=== PATIENT | female | born 1960 | race Caucasian/White ===

== ENCOUNTER → 2017-04-17 | Outpatient (CLI) | payer OTHER | END | disposition home or self-care (01) | LOC: GMAJ 16:20 | PROVIDERS: ATTEND Family Medicine | DX: Z00.00 Encounter for general adult medical examination without abnormal findings (principal) ==

== ENCOUNTER → 2017-04-19 | Outpatient (CLI) | payer OTHER | END | disposition home or self-care (01) | LOC: RESP 14:28 | PROVIDERS: ATTEND Family Medicine | DX: R00.2 Palpitations (principal) ==

== ENCOUNTER → 2017-05-28 | Outpatient (CLI) | payer OTHER ==
--- NOTE | 2017-05-29 14:04 | MAM ---
EXAM DESCRIPTION: Screening Mammogram,Bilateral CLINICAL HISTORY: 56 yearsFemaleSCREENING. Postmenopausal. Stopped taking HRT more than five years ago.. COMPARISON: 04/01/2015 digital screening bilateral examination. No prior reports available. TECHNIQUE: Bilateral CC and MLO projection full-field images, digital screening mammographic technique. CAD was utilized. FINDINGS: The breast parenchymal density pattern is: Heterogeneously dense breast tissue, which may obscure small masses. No skin thickening or nipple retraction . Bilateral solitary parenchymal calcifications. Oval-shaped, well-circumscribed, fatty density mass inferior and medial to the nipple in the anterior third of the lower inner quadrant of the right breast. Dimensions 6.3 x 5.0 x 3.5 Cm. Slightly displaces the anterior skin surface. Minimal fibroglandular density, no calcifications. Most likely a lipoma. May be slightly enlarged since the prior study. Similar lesion in the lower inner quadrant of the anterior third of the left breast approximately minimal fibroglandular tissues, no calcifications; 3 cm in diameter. Skin moles bilaterally indicated by skin markers. No focal, stellate mass or density, focal asymmetry , and no suspicious microcalcifications bilaterally. Stable mammograms compared to the prior study 04/01/2015. IMPRESSION: BI-RADS CATEGORY: 2 - BENIGN FINDINGS. FOLLOW UP: Routine digital bilateral screening, one year interval from May 2017. Written communication explaining the findings and follow-up, will be mailed to the patient and referring health care provider. According to the [employer], yearly mammograms are recommended starting at age 40 and continuing as long as a woman is in good health. Any breast change noted on a breast self-exam should be reported promptly to the patient's healthcare provider. Breast MRI is recommended for women with an approximately 20-25% or greater lifetime risk of breast cancer, including women with a strong family history of breast or ovarian cancer and women who have been treated for Hodgkin's disease. A negative mammographic report should not delay tissue diagnosis in patients with significant clinical history or physical findings. Extremely dense breast tissue limits the sensitivity of digital mammography. Electronically signed by: Darrius Sotelo MD 05/29/2017 2:02 PM CDT Workstation: [id number]
== END | disposition home or self-care (01) ==
LOC: MAMMO 10:37
PROVIDERS: ATTEND Family Medicine
DX: Z12.31 Encounter for screening mammogram for malignant neoplasm of breast (principal)

== ENCOUNTER 2017-09-05 10:01 | Emergency (ER) | payer OTHER ==
[2017-09-05] MEDS ORDERED: CHLORHEXIDINE GLUCONATE 4 % 15 ML UD TOP ONE (10:16)
--- NOTE | 2017-09-05 10:20 | ED.PDOC ---
History of Present Illness - General Chief Complaint: Laceration Stated Complaint: R index finger laceration Time Seen by Provider: 09/05/17 10:10 Source: patient, RN notes reviewed, Vital Signs reviewed Exam Limitations: no limitations - History of Present Illness Initial Comments: Patient comes in with c/o laceration to right index finger. She had [place] gate [place] the dog [place] close on her finger. Denies jasmeet pain/injury. Timing/Duration: just prior to arrival Severity: mild Location: extremities - R index finger Improving Factors: other - pressure Worsening Factors: nothing Associated Symptoms: denies symptoms Home Medications: Ambulatory Orders Ibuprofen [Advil] 400 mg PO Q8HR 04/26/15 Misc Natural Products [Estroven Maximum Strength] 1 tab PO DAILY 04/26/15 Review of Systems - Review of Systems Constitutional: States: no symptoms reported Respiratory: States: no symptoms reported Cardiology: States: no symptoms reported Musculoskeletal: States: see HPI Skin: States: see HPI Neurological: States: no symptoms reported. Denies: numbness, paresthesia, tingling All other Systems: No Change from Baseline Past Medical History (General) - Patient Medical History Hx Stroke: No Hx Congestive Heart Failure: No Hx Diabetes: No Hx MRSA: No Surgical History: Hysterectomy - Vaccination History Hx Tetanus, Diphtheria Vaccination: - 2017 Hx Influenza Vaccination: Yes - 2016 Hx Pneumococcal Vaccination: No - Social History Hx Tobacco Use: Yes - Female History Patient is a Female of Child Bearing Age (10 -59 yrs old): No - hysterectomy Family Medical History - Family History Mother Family History: No Known Living Status: Physical Exam - Physical Exam General Appearance: Alert, Comfortable, No apparent distress, Well Developed, Well Groomed, Well Hydrated, Well Nourished Extremity: non-tender, normal inspection - except for skin injury. No jasmeet tenderness. FROM all finger joints. Neurologic: no motor/sensory deficits, alert, normal mood/affect, oriented x 3 Skin Exam: warm/dry, normal color Skin Problem Location: upper extremities Skin Character: other - R index finger: flap laceration over lateral aspect of middle phalynx. Normal distal sensation and capillary refill. Comments: Vital Signs 09/05/17 10:10 Temperature 97.9 F Pulse Rate [ 94 H Left Radial] Respiratory 20 Rate Blood Pressure 149/89 [Left Arm] O2 Sat by Pulse 97 Oximetry Procedures - Laceration/Wound Repair Right Lateral Finger Wound Length (cm): 2 Wound's Depth, Shape: superficial, flap Wound Explored: no foreign body removed Betadine Prep?: No - Soaked and cleaned with Hibiclens & Saline Wound Debrided: minimal Wound Repaired With: dermabond Layer Closure?: No Sterile Dressing Applied?: No Departure - Departure Clinical Impression: Laceration of index finger of right hand without complication Time of Disposition: 10:37 Disposition: Discharge to Home or Self Care Condition: Good Departure Forms: ED Discharge - Pt. Copy, Patient Portal Self Enrollment Instructions: DI for Laceration Repair With Dermabond Diet: resume usual diet Activity: increase activity as tolerated Referrals: Jaspreet Smith MD [Primary Care Provider] - 1-2 Weeks Home Medications: Ambulatory Orders Ibuprofen [Advil] 400 mg PO Q8HR 04/26/15 Misc Natural Products [Estroven Maximum Strength] 1 tab PO DAILY 04/26/15
[2017-09-05] MEDS ORDERED: TETANUS,DIPHTHERIA,PERTUSSIS 1 EA SYG IM ONE (10:35)
[2017-09-05 11:16] VITALS: BP 177/86; TEMP 99.3
[2017-09-05 18:17] VITALS: O2SAT 97
== END 2017-09-05 10:58 | disposition home or self-care (01) ==
LOC: ER 10:01
DX: S61.210A Laceration without foreign body of right index finger without damage to nail, initial encounter (principal); Z23 Encounter for immunization; Z87.891 Personal history of nicotine dependence; W23.0XXA Caught, crushed, jammed, or pinched between moving objects, initial encounter; Y92.89 Other specified places as the place of occurrence of the external cause

== ENCOUNTER 2018-02-14 12:19 | Emergency (ER) | payer OTHER ==
[2018-02-14 12:43] VITALS: BP 138/88; TEMP 99.4; O2SAT 93
--- NOTE | 2018-02-14 12:57 | RAD ---
Two-view right forearm. Indication: pain Comparison: None. Impression: No acute fracture or malalignment. If there is persistent anatomic snuffbox tenderness, repeat wrist imaging to include a scaphoid view is recommended in one week to evaluate for occult scaphoid fracture. Soft tissues are intact without radiopaque foreign body. Electronically signed by: Gennaro Laguerre MD 02/14/2018 12:55 PM CDT
--- NOTE | 2018-02-14 13:02 | ED.PDOC ---
History of Present Illness - General Chief Complaint: Upper Extremity Injury Stated Complaint: right forearm injury Time Seen by Provider: 02/14/18 12:55 Source: patient Exam Limitations: no limitations - History of Present Illness Initial Comments: Juliane Love 57 y/o female came to er after her right forearm accidentally struck the drivers side of her car door,has sharp pain with swelling and tingling sensation froeram and hand right.Denies any other injuries. Occurred: just prior to arrival Pain - Upper Extremity: moderate: Forearm, right Method of Injury: other - see hpi Improving Factors: rest Worsening Factors: movement Allergies/Adverse Reactions: Allergies NO KNOWN ALLERGY Allergy (Verified 02/14/18 12:29) Home Medications: Ambulatory Orders Ibuprofen [Advil] 400 mg PO Q8HR 04/26/15 Misc Natural Products [Estroven Maximum Strength] 1 tab PO DAILY 04/26/15 Review of Systems - Review of Systems Constitutional: States: no symptoms reported EENTM: States: no symptoms reported Respiratory: States: no symptoms reported Cardiology: States: no symptoms reported Musculoskeletal: States: see HPI Skin: States: see HPI Neurological: States: see HPI All other Systems: Reviewed and Negative, No Change from Baseline Past Medical History (General) - Patient Medical History Hx Stroke: No Hx Congestive Heart Failure: No Hx Diabetes: No Hx MRSA: No Surgical History: other - hysterectomy - Vaccination History Hx Tetanus, Diphtheria Vaccination: Yes - 2017 Hx Influenza Vaccination: Yes - 2016 Hx Pneumococcal Vaccination: No Immunizations Up to Date: Yes - Social History Hx Tobacco Use: Yes Family Medical History - Family History Mother Family History: No Known Living Status: Physical Exam - Physical Exam General Appearance: Alert, Comfortable, No apparent distress Eyes, Ears, Nose, Throat Exam: normal ENT inspection Neck: full range of motion, supple Cardiovascular/Respiratory: regular rate, rhythm, no M/R/G, normal peripheral pulses Abdominal Exam: non-tender, no organomegaly Back Exam: no CVA tenderness, no vertebral tenderness Shoulder Exam: no evidence of injury Elbow/Forearm Exam: abrasions - superficial, bone tenderness - right forearm, ecchymosis - right forearm, soft tissue tenderness - right forearm, swelling - right forearm Wrist Exam: non-tender, no evidence of injury, normal ROM Hand Exam: non-tender, no evidence of injury, normal ROM Progress - Progress Progress: 02/14/18 13:06 Vital Signs - 24 hr 02/14/18 12:32 Temperature 99.4 F Pulse Rate [ 92 H left brachial] Respiratory 18 Rate Blood Pressure 138/88 [left brachial] O2 Sat by Pulse 93 L Oximetry - EKG/XRAY/CT XRAY: forearm - right no fracture Departure - Departure Clinical Impression: Pain in right forearm Contusion Qualifiers: Encounter type: initial encounter Contusion area: forearm Laterality: right Qualified Code(s): S50.11XA - Contusion of right forearm, initial encounter Time of Disposition: 13:11 Disposition: Discharge to Home or Self Care Condition: Fair Departure Forms: ED Discharge - Pt. Copy, Patient Portal Self Enrollment Instructions: DI for Contusion Referrals: Jaspreet Smith MD [Primary Care Provider] - 1-2 Weeks Home Medications: Ambulatory Orders Ibuprofen [Advil] 400 mg PO Q8HR 04/26/15 Misc Natural Products [Estroven Maximum Strength] 1 tab PO DAILY 04/26/15 Additional Instructions: Ice pack to affected area 20 minutes 3 x a day during waking hours only for 5 days;elevate right forearm 20 degrees at bedtime until better;Aleve 1-2 tablets am/pm for pain
[2018-02-14] MEDS ORDERED: NEOMYCIN-BACITRACIN-POLYMYXIN 0.9 GM UD TOP ONE (13:14)
== END 2018-02-14 13:40 | disposition home or self-care (01) ==
LOC: ER 12:19
DX: S50.11XA Contusion of right forearm, initial encounter (principal); W22.8XXA Striking against or struck by other objects, initial encounter; Y92.9 Unspecified place or not applicable

== ENCOUNTER 2019-01-16 05:45 | Day surgery (SDC) | payer OTHER ==
--- NOTE | 2019-01-14 13:14 | RAD ---
EXAM DESCRIPTION: Chest,2 Views CLINICAL HISTORY: preop for surgery on 01/16/19 COMPARISON: None TECHNIQUE: PA/lateral FINDINGS: There is no acute appearing cardiac or pulmonary abnormality. Heart size is normal with normal pulmonary vascularity. No pleural effusion or pneumothorax. Lungs are clear with no consolidating infiltrate. Lateral view shows intact sternum and T-spine. IMPRESSION: No acute process is identified in the chest. 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
[2019-01-16] MEDS ORDERED: raNITIdine HCL INJ 25 MG/ML VIAL ONE (07:00)
[2019-01-16] MEDS ORDERED: LACTATED RINGERS 1,000 ML ONE (07:00)
[2019-01-16] MEDS ORDERED: ceFAZolin SODIUM 1 GM VIAL ONE (07:00)
[2019-01-16] MEDS ORDERED: PROPOFOL 200 MG/20 ML VIAL IV ONE (07:00)
[2019-01-16] MEDS ORDERED: DEXAMETHASONE INJ 10 MG/ML VIAL ONE (07:00)
[2019-01-16] MEDS ORDERED: LIDOCAINE 1% 10 ML VIAL INJ ONE (07:00)
[2019-01-16] MEDS ORDERED: SODIUM CHL 0.9% 100ML MINI-BAG 100 ML IVPB ONE (07:00)
[2019-01-16] MEDS ORDERED: LIDOCAINE 1% 50 ML VIAL INJ ONE (07:32)
[2019-01-16] MEDS ORDERED: SODIUM BICARBONATE VIAL 50 MEQ/50 ML VIAL ONE (07:32)
[2019-01-16] MEDS ORDERED: MIDAZOLAM INJ 5 MG/5 ML VIAL ONE (07:47)
[2019-01-16] MEDS ORDERED: fentaNYL CITRATE INJ 50 MCG/ML AMP ONE (07:48)
[2019-01-16] MEDS ORDERED: NEOMYCIN-BACITRACIN-POLYMYXIN 0.9 GM UD TOP ONE ×2 (08:42→08:54)
--- NOTE | 2019-01-16 09:56 | OP ---
DATE OF PROCEDURE: 01/16/19 PREOPERATIVE DIAGNOSIS: 1. Subcutaneous mass of the right midback, left midback and right forearm. 2. Tender, raised skin lesion in the right proximal thigh. 3. Growing, raised lesion, right upper back. POSTOPERATIVE DIAGNOSIS: 1. Subcutaneous mass of the right midback, left midback and right forearm, all appearing to be lipomas. 2. Tender, raised skin lesion in the right proximal thigh. 3. Growing, raised lesion, right upper back. PROCEDURE PERFORMED: 1. Excision or skin lesion, right thigh and right upper back. 2. Excision of subcutaneous masses, right midback, left midback and right forearm. SURGEON: Dorian Greene MD. USER EXPERIENCE MANAGER: None. ANESTHESIA: Local infiltration of 1% lidocaine with bicarb and IV sedation by Anesthesia. 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 She has multiple lipomas. She has had several removed before, but she has two on the back that are becoming quite uncomfortable when she bends or sometimes when driving and has pressure on them. The right forearm lesion is bumped all the time and is quite sensitive. The right thigh lesion is between the legs and rubs on her pants and is uncomfortable. The lesion on the right upper back has been noticed to be growing. She was brought to the Surgical Suite today after the risks, benefits and alternatives to the procedure were discussed and accepted, including the possibility of performing these procedures in the office, but the patient was quite nervous. FINDINGS: As noted, the subcutaneous masses all appeared to be lipomas. The one on the left midback was approximately 4 cm in length. The one on the right midback was 2.5 cm in length. The one on the forearm was approximately 2 cm in length. DESCRIPTION OF PROCEDURE: The patient was brought to the Surgical Suite, initially placed in the supine position and then serially, the right thigh and then the right forearm were prepped and then draped. Local infiltration of anesthesia was obtained in the right thigh with 1% lidocaine. It was then excised tangentially and cautery was used to obtain hemostasis and then a dark bob was obtained. The specimen was sent for pathological evaluation. At this point, a transverse incision was made over the forearm, first with local anesthesia, then the sharp knife. Dissection was carried down through the subcutaneous tissue. The mass was identified, dissected free circumferentially using blunt dissection, transected at its base with electrocautery and was then sent for pathological evaluation. The skin edges were then reapproximated with interrupted 4-0 Nylon vertical mattress sutures. A sterile pressure dressing was applied. At this point, the patient was turned right side up lateral position and the right shoulder lesion was prepped and draped. It was infiltrated with local anesthesia, transected tangentially and then the base was cauterized. The specimen was sent for pathological evaluation. The right midback subcutaneous mass was then prepped with Betadine, draped, infiltrated with local anesthesia and a transverse incision was made over it. Dissection was carried down through the skin and then into the subcutaneous tissue. Blunt dissection was used to remove the mass. Hemostasis was obtained with electrocautery. The skin edges were approximated with interrupted 4-0 Nylon vertical mattress sutures. A sterile pressure dressing was applied. The patient was then turned to the left side up lateral decubitus position and the subcutaneous mass was prepped with Betadine, draped, local infiltration of anesthesia was obtained and then a transverse incision was made with a sharp knife into the subcutaneous tissue. The lesion was identified, dissected free circumferentially, transected at its base using electrocautery and sent for pathological evaluation. The skin edges were then cauterized for local anesthesia. The skin was then reapproximated with interrupted 4-0 Nylon vertical mattress sutures. Sterile dressing was applied. The patient was then awakened and taken to the Ambulatory Unit in stable condition. Estimated blood loss was approximately 25 mL. All sponge, needle and instrument counts were correct. #[id number] MTDD
[2019-01-16 10:39] VITALS: BP 130/87; TEMP 97.7; O2SAT 97
== END 2019-01-16 10:30 | disposition home or self-care (01) ==
LOC: AMB 05:45
PROVIDERS: ATTEND Surgery
DX: D22.71 Melanocytic nevi of right lower limb, including hip (principal); D17.21 Benign lipomatous neoplasm of skin and subcutaneous tissue of right arm; D22.5 Melanocytic nevi of trunk; D17.1 Benign lipomatous neoplasm of skin and subcutaneous tissue of trunk; I10 Essential (primary) hypertension; F17.210 Nicotine dependence, cigarettes, uncomplicated
CPT/HCPCS: 00300; 11402; 11403; 21930; 21931; 25075; 36415; 71046; 80048; 81001; 85025; 93005; J0690; J2250; J3010; J7050; J7120

== ENCOUNTER 2019-03-03 05:25 | Day surgery (SDC) | payer OTHER ==
[2019-03-03] MEDS ORDERED: SODIUM CHL 0.9% 100ML MINI-BAG 100 ML IVPB ONE (07:04)
[2019-03-03] MEDS ORDERED: LACTATED RINGERS 1,000 ML ONE (07:04)
[2019-03-03] MEDS ORDERED: ceFAZolin SODIUM 1 GM VIAL ONE (07:04)
[2019-03-03] MEDS ORDERED: LIDOCAINE 1% 50 ML VIAL INJ ONE (07:20)
[2019-03-03] MEDS ORDERED: SODIUM BICARBONATE VIAL 50 MEQ/50 ML VIAL ONE (07:20)
[2019-03-03] MEDS ORDERED: fentaNYL CITRATE INJ 50 MCG/ML AMP ONE (08:12)
[2019-03-03] MEDS ORDERED: MIDAZOLAM INJ 5 MG/5 ML VIAL ONE (08:12)
[2019-03-03] MEDS ORDERED: KETAMINE HCL 100 MG/ML VIAL ONE (08:45)
[2019-03-03] MEDS ORDERED: PROPOFOL 200 MG/20 ML VIAL IV ONE (10:00)
[2019-03-03] MEDS ORDERED: LIDOCAINE 1% 10 ML VIAL INJ ONE (10:00)
[2019-03-03 10:43] VITALS: BP 168/83; TEMP 96.8; O2SAT 99
--- NOTE | 2019-03-03 11:32 | OP ---
DATE OF PROCEDURE: 03/03/19 PREOPERATIVE DIAGNOSIS: 1. Tender subcutaneous masses, two from the right thigh, one from the left thigh, one on the left forearm and a raised skin lesion on the left breast which has grown and catches on her clothes. POSTOPERATIVE DIAGNOSIS: 1. Tender subcutaneous masses, two from the right thigh, one from the left thigh, one on the left forearm and a raised skin lesion on the left breast which has grown and catches on her clothes. PROCEDURE: 1. Excision of subcutaneous masses and skin lesion, multiple. SURGEON: Dorian Greene MD. STAFF RADIOGRAPHER: None. ANESTHESIA: Local infiltration of 1% lidocaine and sedation by Anesthesia. INDICATION: The patient is a 58-year-old female who has multiple skin lesions. 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 She has multiple subcutaneous masses. She has removed some in the past. They are irritated by minimal trauma, which occurs routinely. She was brought to the Surgical Suite today for excision of those plus a skin lesion on her upper left breast which catches on her clothes and causes irritation. It has apparently grown. The risks, benefits and alternatives to these procedures were discussed and accepted by the patient. FINDINGS: Pathology is pending. The four subcutaneous masses appeared to be fatty in nature, consistent with lipomas. Pathological evaluation is pending as is the skin lesion. PROCEDURE: The patient was placed in the supine position. IV sedation was performed. She was prepped and draped for her thigh lesions. Surgical time-out was taken. Each lesion was then individually infiltrated with local anesthesia. The skin was incised with a knife and dissection was carried down through the skin into the subcutaneous tissue using blunt dissection and electrocautery. The masses were bluntly removed. Hemostasis was obtained with electrocautery. In this case, the subcutaneous tissues were reapproximated with interrupted 3-0 Vicryl suture and the skin edges were approximated with 4-0 Nylon vertical mattress sutures. Sterile pressure dressings were applied after all three had been done. At this point, the breast and the left arm were prepped again and draped. The breast lesion was then excised first with local anesthesia and then with sharp dissection. The skin was reapproximated with interrupted 4-0 Nylon sutures. The arm lesion was then infiltrated with local anesthesia. A transverse incision was made and using blunt dissection and some electrocautery, the lesion was removed piecemeal. There appeared to be multiple small lipomas. Hemostasis was obtained with electrocautery. The wound was irrigated with local and then the skin edges were approximated with 4-0 Nylon vertical mattress sutures. Sterile dressings were applied. The patient was awakened and taken to the Ambulatory Unit in stable condition. Estimated blood loss was less than 100 mL. All sponge, needle and instrument counts were correct. #[id number] [facility]
== END 2019-03-03 10:35 | disposition home or self-care (01) ==
LOC: AMB 05:25
PROVIDERS: ATTEND Surgery
DX: D17.23 Benign lipomatous neoplasm of skin and subcutaneous tissue of right leg (principal); D17.24 Benign lipomatous neoplasm of skin and subcutaneous tissue of left leg; D17.22 Benign lipomatous neoplasm of skin and subcutaneous tissue of left arm; D22.5 Melanocytic nevi of trunk; M19.90 Unspecified osteoarthritis, unspecified site; Z90.710 Acquired absence of both cervix and uterus
CPT/HCPCS: 00400; 11400; 25075; 27327; 36415; 80048; 81001; 85025; J0690; J2250; J3010; J3490; J7050; J7120

== ENCOUNTER → 2020-08-23 | Outpatient (CLI) | payer OTHER | LOC: YCFC.O 16:43 | PROVIDERS: ATTEND Family Medicine | DX: Z20.828 Contact with and (suspected) exposure to other viral communicable diseases (principal) ==

== ENCOUNTER 2021-01-07 18:24 | Emergency (ER) | payer OTHER ==
[2021-01-07] MEDS ORDERED: SODIUM CHLORIDE 0.9% 1000ML 1,000 ML IVS ONE (18:34)
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
[2021-01-07 20:15] VITALS: BP 122/74; TEMP 97; O2SAT 98
== END 2021-01-07 20:14 | disposition home or self-care (01) ==
LOC: ER 18:24
DX: T69.9XXA Effect of reduced temperature, unspecified, initial encounter (principal); I10 Essential (primary) hypertension; W16.111A Fall into natural body of water striking water surface causing drowning and submersion, initial encounter; Y93.89 Activity, other specified; Y92.828 Other wilderness area as the place of occurrence of the external cause; Z87.891 Personal history of nicotine dependence

== ENCOUNTER → 2021-01-12 | Outpatient (CLI) | payer OTHER | LOC: YCFC.O 08:16 | PROVIDERS: ATTEND Family Medicine | DX: R53.83 Other fatigue (principal); I10 Essential (primary) hypertension; Z13.220 Encounter for screening for lipoid disorders ==